=== PATIENT | male | born 1985 | race Caucasian/White ===

== ENCOUNTER 2019-02-12 15:08 | Emergency (ER) | payer OTHER ==
[~2019-02-12] VITALS: Ht 185.4 cm; Wt 77.1 kg
[2019-02-12 15:27] VITALS: BP 135/80
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
--- NOTE | 2019-02-12 16:31 | NUR ---
PT TAKEN TO X-RAY.
--- NOTE | 2019-02-12 16:32 | NUR ---
[facility] guevara in [facility] - 02/12/19 at 1638 by [facility] PT TAKEN TO BED 2.
--- NOTE | 2019-02-12 16:38 | NUR ---
PT TAKEN FROM X-RAY TO BED 10.
[2019-02-12] MEDS ORDERED: KETOROLAC 60 MG/2 ML VIAL IM ONE (17:15)
[2019-02-12] MEDS ORDERED: traMADol 50 MG TAB PO ONE (17:15)
--- NOTE | 2019-02-12 17:32 | NUR ---
DINNER TRAY PROVIDED TO PT
--- NOTE | 2019-02-12 17:57 | NUR ---
EASY TO AWAKEN---INSTRUCTED TO KEEP RIGHT UPPER EXTREMITY ELEVATED TO REDUCE/MINIMIZE SWELLING--- CONTINUE TO WAIT FOR DC INSTRUCTIONS
--- NOTE | 2019-02-12 18:06 | NUR ---
pt ambulated out of the er with steady gait---refused to continue to wait for dc papers from .
[2019-02-12 18:07] VITALS: BP 129/88
== END 2019-02-12 18:06 | disposition home or self-care (01) ==
LOC: MED 15:08
DX: S63.501A Unspecified sprain of right wrist, initial encounter (principal); F20.9 Schizophrenia, unspecified; V89.9XXA Person injured in unspecified vehicle accident, initial encounter; Y93.89 Activity, other specified; Y92.89 Other specified places as the place of occurrence of the external cause; Y99.8 Other external cause status
CPT/HCPCS: 29125; 73110; 96372; 99283; J1885

== ENCOUNTER 2023-08-02 01:10 | Emergency (ER) | payer OTHER ==
[~2023-08-02] VITALS: Ht 185.4 cm; Wt 72.6 kg
[2023-08-02] MEDS ORDERED: LORazepam 2 MG/ML VIAL ONE (01:19)
[2023-08-02 01:21] VITALS: BP 144/84; PULSE 112; RESP 18; TEMP 98.6; O2SAT 94
[2023-08-02] MEDS ORDERED: LORazepam 2 MG/ML VIAL IM ONE (01:50)
[2023-08-02 07:00] VITALS: BP 129/85; PULSE 87; RESP 18; TEMP 98.6; O2SAT 95
== END 2023-08-02 07:00 | disposition home or self-care (01) ==
LOC: MED 01:10
DX: F15.10 Other stimulant abuse, uncomplicated (principal); Z72.89 Other problems related to lifestyle; Z79.899 Other long term (current) drug therapy
CPT/HCPCS: 96372; 99283; J2060